=== PATIENT | male | born 1945 | race Caucasian/White ===

== ENCOUNTER 2023-11-09 09:08 | Day surgery (SDC) | payer OTHER, SELFPAY ==
[2023-11-02 14:21] VITALS: BMI 33.6
[2023-11-09] MEDS: LACTATED RINGERS 1,000 ML 42 ML IV ×2 (10:00→11:47)
[2023-11-09 10:02] VITALS: BP 163/90; PULSE 53; RESP 22; TEMP 36.9; O2SAT 98; BMI 32.8
--- NOTE | 2023-11-09 10:20 | PM.PREOP ---
Pre-operative Note Interval Note History & Physical reviewed/Exam performed by Physician: Yes Changes to H&P: No
--- NOTE | 2023-11-09 10:21 | SUR.PREOP ---
Block start time [1025] . Timeout completed. Monitoring initiated and maintained throughout procedure. Oxygen given per anesthesiologist instructions. Patient remained stable throughout procedure, no adverse reactions noted. Block end time [1036].
[2023-11-09] MEDS: CEFAZOLIN 2 GM/100 ML PREMIX 100 ML IV (10:58)
--- NOTE | 2023-11-09 11:14 | SUR.OPER ---
Supine on padded OR bed, head on pillow, arms secured on padded arm boards at <90 degrees abduction, legs uncrossed, safety belt at thigh, tape over blanket over lower legs.
[2023-11-09] MEDS: BUPIVACAINE 0.25% (PF) 30 ML, EPINEPHrine 0.15 MG INJ (11:31)
--- NOTE | 2023-11-09 12:19 | DI.RAD.S_ITS ---
PROCEDURE: XR ANKLE RT MIN 3V INDICATIONS: RIGHT ANKLE FUSION TECHNIQUE: 1 fluoroscopic view of the ankle was acquired. COMPARISON: None. FINDINGS/IMPRESSION: Ongoing screw fixation of the tibiotalar joint. Dictated by: Jose Luis Jameson M.D. on 11/09/2023 at 17:11 Approved by: Jose Luis Jameson M.D. on 11/09/2023 at 17:14
[2023-11-09 12:53] VITALS: BP 138/70; PULSE 63; RESP 14; TEMP 36.9; O2SAT 94
[2023-11-09 12:59] VITALS: BP 132/82; PULSE 64; RESP 15; TEMP 36.9; O2SAT 94
[2023-11-09 13:06] VITALS: BP 137/75; PULSE 60; RESP 13; TEMP 36.6; O2SAT 97
[2023-11-09 13:10] VITALS: BP 132/83; PULSE 61; RESP 12; TEMP 36.9; O2SAT 98
--- NOTE | 2023-11-09 13:22 | P.OP_ITS ---
Operative Date/Time/Diagnoses Date of procedure: 11/09/23 Time of procedure: 10:30 Pre-op diagnosis: Arthritis ankle, right Post-op diagnosis: same Procedure & Clinicians Procedure: Open ankle fusion, right CPT code 20264 Insertion orthopedic drug delivery device bone graft substitute recombinant platelet derived growth factor [id number] Lengthening right Achilles tendon separate site CPT code 93176 +59 Same procedure as scheduled: Yes Indications: Patient is a 78-year-old male that has a postinfectious right ankle arthritis, he is failed conservative treatments with braces anti-inflammatories and injections including an AFO brace. He has been indicated for definitive tibiotalar fusion. He has no current evidence of infection. The risks and benefits of the procedure have been discussed with the patient and given the opportunity to ask questions. The risks of surgery include but are not limited to infection, malunion, nonunion, persistence of pain, damage to nerves and blood vessels, posttraumatic arthritis, DVT, PE, coardiopulmonary complications and . The patient expressed a thorough understanding of the risks and benefits of surgery and has elected to proceed. Consent was signed. Surgeon: Jocelyne Neil Click Yes if Unassisted: Yes Anesthesia Type: General, Peripheral nerve block and Local Operative Notes Findings: End-stage tibiotalar arthritis eburnated bone, right Closure Type: primary Prosthetic devices, grafts, tissues, transplants, or devices: Arthrex short anterior ankle fusion plate with locking and nonlocking screws. 3.5 2x Arthrex 7.0 headless compression screws Estimated Blood Loss (mL): 50 Blood products transfused: none Tourniquet time (min): 81 Procedure in detail: Patient was seen in the preoperative area the site of surgery marked informed consent confirmed. This was the right ankle. Patient was brought back to the operating room. Regional block was placed by the anesthesia team for postoperative pain control. The patient was positioned on the operative table bony prominences well padded. A well-padded thigh tourniquet was applied. An ipsilateral thigh bump was applied. The right lower extremity was prepped and draped in standard sterile fashion a formal time-out procedure was performed confirming the patient's side and site of surgery administration of appropriate preoperative antibiotic. All were in agreement Attention turned to the right lower extremity. Esmarch was used for exsanguination tourniquet raised on the thigh to 250 mm of mercury. Ankle was held in dorsiflexion was approximately 5? short of neutral therefore tendo- Achilles lengthening was indicated the back of the leg while holding it up in dorsiflexion 3 separate 1 cm incisions were made with careful dissection down to the Achilles tendon and a distal and proximal elian section were made to the lateral side and a central elian section made to the medial side with a audible and palpable stretch to regain at least 5? of dorsiflexion of the ankle could be placed appropriately in a neutral position. Next attention returned to the anterior part of the ankle the tibiotalar joint the anterior approach was marked out bisecting the medial and lateral malleolus and just lateral to the tibial crest and tibialis anterior. This was taken down through the skin subcutaneous tissues. Note the area was scarred. The superficial peroneal nerve branch was not well visualized. The care was taken to dissect and open the tendon sheath lateral to the tibialis anterior to keep it inside of its sheath this was opened over the EHL and EHL and neurovascular b undle were retracted laterally and the tibialis anterior medially. Subperiosteal dissection was carried down to the level of the tibiotalar joint which was severely arthritic with bone spurs. These were removed with a rongeur and osteotome and Tuesday of osteotomes and curette were used to remove any remaining cartilage from the tibiotalar surface this was thoroughly completed for joint prep using the joint prep instruments and 4.0 bur and then finally a 3.0 drill and osteotome to fish scale the surfaces. Next the ankle was positioned in the appropriate fusion position and pinned with smooth K-wires guidewires for the 7.0 screws from the medial approach with 2 medial screws this was checked on AP and lateral imaging once this wires were in the appropriate position these were measured and overdrilled for 7.0 screws from the Arthrex set. This provided good alignment. There was still some flecks anteriorly as expected therefore the anterior plate was selected the ankle was carefully again held in neutral dorsiflexion and the short ankle fusion plate was applied to the tibiotalar bone this was 1st secured distally with a nonlocking screw and a BB Prakash proximally then a nonlocking screw in the oblong hole for additional compression. Then locking screw was placed in the most proximal hole. And finally the nonlocking screw in the talus was changed out for a locking screw and the length adjusted on the initial compression screw on the plate. Final x- rays were taken AP oblique and lateral demonstrated appropriate alignment in neutral and hardware placement with a tibiotalar fusion at this point the platelet derived growth factor from Zane Prep augment was mixed and the 3 cc of recombinant platelet derived growth factor bone graft substitute was injected laterally at the tibiotalar joint where there was an access into the remaining joint and also medially for the bone graft. Once this was completed the capsule and then the retinaculum were closed then the tourniquet was released hemostasis was achieved, toes pinked up well. Subcutaneous closure with 2-0 Vicryl 4-0 Monocryl and 3-0 nylon suture. Patient was placed into a neutral a bulky Beltrán splint with posterior and AU splint. Patient was awoken from anesthesia and taken to recovery unit in good condition there were no immediate complications from this procedure. Counts were correct. Complications: none Post-operative Condition: stable Disposition: PACU Plan for aftercare: Nonweightbearing 8 weeks. Follow up in 2 weeks for wound check conversion to cast. The patient is allergic to aspirin so 2 Eliquis 2.5 mg b.i.d. for DVT prophylaxis.
== END 2023-11-09 13:45 | disposition home or self-care (01) ==
PROVIDERS: PCP Family Medicine; Referring Provider Orthopaedic Surgery Foot and Ankle Surgery; Visit Provider Orthopaedic Surgery Foot and Ankle Surgery
PROC: (CPT 27870; principal; 2023-11-09 10:45)
PROC: (CPT 27685; 2023-11-09 10:45)
DX: M00.9 Pyogenic arthritis, unspecified (principal); M67.01 Short Achilles tendon (acquired), right ankle; G89.18 Other acute postprocedural pain; M25.771 Osteophyte, right ankle
CPT/HCPCS: 27870; 27685; C1734; 64450; 73610; 76000; J0171; J0690; J1170; J2405; J2704; J3010